=== PATIENT | male | born 1955 | race Caucasian/White ===

== ENCOUNTER 2017-01-07 21:15 | Inpatient (IN) | payer OTHER ==
--- NOTE | ~2017-01-07 | CN ---
Consultation Report [facility] [address] [place]. [address] NAME: KALYN QURESHI : 57 STATUS : ADM IN [facility]#: [id number] AGE: 61 ADM/REG DATE : 01/08/17 MR#: [id number] REPORT SERV DATE: 01/09/17 DICTATED BY: DATE: REPORT STATUS : Draft TRANSCRIBED BY: MODL DATE: 01/08/17 CONSULTATION DATE OF CONSULTATION: 01/08/2017 CHIEF COMPLAINT/REASON FOR CONSULT: Chest pain. HISTORY OF PRESENT ILLNESS: Mr. Kalyn Qureshi is a patient who is a known to me from clinic. He recently established cardiology care with me approximately one week ago. At that time, he was complaining of chest pain and underwent angiogram on 12/28/2016. He was found to have obstructive coronary artery disease in his right coronary artery and underwent drug- eluting stent to the RCA. The patient had a normal left ventricular systolic function and elevated left ventricular end-diastolic pressure at that time. The patient stated that he felt better after the cardiac catheterization and then two days prior to admission he states that he felt like something happen. He stated that he had chest discomfort while he was walking in [facility], 9/10 in intensity. It radiates to his arms and his shoulders bilaterally and it was associated with shortness of breath, sweating, and nausea. 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 He rested in a car and a restaurant across the street and then he felt better. After that episode, he decided to proceed to the hospital for additional evaluation. PAST MEDICAL HISTORY: 1. Coronary artery disease, status post PCI to the RCA, 12/28/2016. 2. Former history of stent placement 2009 to the mid RCA and proximal circumflex. 3. Hypertension. 4. Diabetes. 5. Hyperlipidemia. 6. Morbid obesity. 7. Anxiety and depression. SOCIAL HISTORY: The patient is . He does not smoke, drink, or use extracurricular drugs. FAMILY HISTORY: Noncontributory. MEDICATIONS: Current inpatient medications include, 1. Amlodipine 10 mg p.o. daily. 2. Aspirin 81 mg p.o. daily. 3. Atorvastatin 80 mg p.o. daily. 4. Coreg 12.5 mg p.o. b.i.d. 5. Diazepam 10 mg p.o. at bedtime. 6. Fenofibrate. 7. Hydrocodone. 8. Insulin. Consultation Report [place] [address] [facility] [address] NAME: KALYN QURESHI : 57 STATUS : ADM IN [facility]#: [id number] AGE: 61 ADM/REG DATE : 01/08/17 MR#: [id number] REPORT SERV DATE: 01/09/17 DICTATED BY: DATE: REPORT STATUS : Draft TRANSCRIBED BY: MODL DATE: 01/08/17 9. . 10.Nitroglycerin. 11.Pregabalin. 12.Quetiapine. 13.Sertraline. 14.Ticagrelor. 15.Clonidine. REVIEW OF SYSTEMS: All systems were reviewed and is negative except for as dictated in HPI. PHYSICAL EXAMINATION: VITAL SIGNS: Temperature 98.4, pulse between 90 and 98 beats per minute, blood pressure 118 to 142 over 64 to 77, respirations 20, oxygen saturation is 97% on 2 L nasal cannula. GENERAL: Mr. Qureshi is a well-groomed 61-year-old gentleman, he does appear older than his stated age. NECK: I could not appreciate jugular venous distention due to body habitus. There are no carotid bruits. HEART: Regular rate and rhythm. Normal S1, S2. I could not appreciate murmurs, rubs, or gallops. LUNGS: Clear to auscultation in all wise. ABDOMEN: Obese and nontender. The abdominal aorta is nonpalpable. I could not appreciate renal bruits. EXTREMITIES: Warm. The cardiac catheterization site via the right wrist is well healing via primary intention. There is no significant pitting edema. DATA: BUN 37, creatinine 3.19, potassium 3.5. Hemoglobin 13.4, hematocrit 34.9, white blood cell count 9.3, platelet count 179. Cardiac enzymes are negative x3 with MB that is negative. BNP is less than 2. An EKG performed on admission demonstrated sinus tachycardia. There are no ischemic ST-T segment changes. Repeat EKG performed this morning at 10:43 demonstrated normal sinus rhythm without ischemic ST-T segment changes. IMPRESSION: 1. Chest pain. The differential diagnosis includes unstable angina versus microvascular disease, but also would strongly consider noncardiac causes of chest pain. There is no evidence of acute coronary syndrome. 2. Acute renal failure. Possibly contrast-induced nephropathy. 3. Coronary artery disease, status post PCI to the RCA 12/28/2016 with remote, PCI to the RCA and circumflex in 2009. 4. Hypertension. 5. Diabetes mellitus. 6. Morbid obesity with BMI greater than 40. RECOMMENDATIONS: 1. We would treat the underlying kidney disease. Consultation Report [place] [id number] [facility] [address] NAME: KALYN QURESHI : 57 STATUS : ADM IN [facility]#: [id number] AGE: 61 ADM/REG DATE : 01/08/17 MR#: [id number] REPORT SERV DATE: 01/09/17 DICTATED BY: DATE: REPORT STATUS : Draft TRANSCRIBED BY: MODL DATE: 01/08/17 2. We will arrange for PET myocardial perfusion stress test to evaluate for ischemia. 3. In that light, would discontinue Nitro paste and discontinue heparin as there is no evidence of acute coronary syndrome. 4. Hold JANELLE inhibitor. 5. Additional recommendations, post stress, pending clinical course. [facility]/MODL Cathy Galo M.D. / [id number] CC: Casa Combs Susan R.
--- NOTE | ~2017-01-07 | DS ---
Discharge Summary [place] [address] [place]. [address] NAME: MAGDA JUÁREZ : 57 STATUS : DIS IN PAT#: [id number] AGE: 61 ADM/REG DATE : 01/08/17 MR#: [id number] REPORT SERV DATE: 01/13/17 DICTATED BY: FLAQUITA QUIROS DATE: 01/12/17 REPORT STATUS : Draft TRANSCRIBED BY: MODL DATE: 01/12/17 ADMISSION DATE: 01/08/2017 DISCHARGE DATE: 01/12/2017 CONSULTANTS: Cathy Galo M.D., Cardiology. DISCHARGE DIAGNOSES: 1. Unstable angina pectoris. 2. Acute kidney injury, transient, resolved. 3. Hypertension, not at goal. 4. Diabetes mellitus type 2 with peripheral neuropathy and A1c of 9.3%. 5. Obesity with body mass index of 42.5. 6. Coronary artery disease requiring a new drug-eluting stent to the LAD as well as PTCA to the diagonal 2 and diagonal 3 in spite of recent drug-eluting stent to the RCA on 12/28/2016. 7. Obstructive sleep apnea on CPAP at night. 8. Restless leg syndrome. 9. Mild anemia. 10.Mild chronic stable thrombocytopenia. 11.Severe insomnia with restless legs syndrome. HISTORY: This patient had been hospitalized here and had elective stenting of the right coronary artery on 12/28/2016, but after that discharge he had gradually worsening chest pain along with shortness of breath. No radiation to his left arm along with nausea, and because of this he came to the emergency room. In the ER, his blood sugar was elevated at 341 and his serum creatinine was 3.19. He was referred to our team for inpatient care. The patient was kept off his Bumex and lisinopril. Given IV fluids. He had a renal ultrasound on 01/08/2017 that was normal. The patient's creatinine rapidly improved to 1.29 x 227 and down to 0.74 x 3 to 01/11/2017. He had initial sets of cardiac enzymes that were normal. He underwent a PET myocardial perfusion scan on 01/09/2017 showing the RCA stents patent, moderate mid LAD disease in the mid segment with severe branch vessel disease and ischemia on the noninvasive imaging, ostial ramus and left circumflex disease was unchanged. Because of this, Cardiology recommended the patient to undergo a cardiac catheterization. I discussed with him the risks of this versus going ahead for coronary bypass grafting and actually had cardiothoracic surgery. Dr. Nuñez's team talked to him about the option of surgical intervention. The patient preferred to go the route of non-bypass, so on 01/11/2017 Dr. Birch did a heart catheterization with successful PCI of the LAD with a drug- eluting stent to the LAD and angioplasty to the second and third diagonal. The patient tolerated this procedure well. His creatinine the following day was 0.81 and no site hematoma. He has no recurrent angina. Troponin did bump slightly to 0.38. He has also been moderately hypertensive with systolics ranging in the 190s to 206 range when he is off his lisinopril; however, we do not want to restart him yet on this class of drug with his recent acute kidney injury, so we are recommending amlodipine 5 mg daily unless Cardiology has a different opinion. If Cardiology agrees, the patient will be able to go home today and follow up with his PCP, Discharge Summary [address] [address] NAME: MAGDA JUÁREZ : 57 STATUS : DIS IN PAT#: [id number] AGE: 61 ADM/REG DATE : 01/08/17 MR#: [id number] REPORT SERV DATE: 01/13/17 DICTATED BY: FLAQUITA QUIROS DATE: 01/12/17 REPORT STATUS : Draft TRANSCRIBED BY: MODMonster DATE: 01/12/17 Melva Taylor, as well as Cardiology themselves. The patient through this hospitalization has been noted to have a mild anemia, it is normocytic. His hemoglobin is between 11.2 and 12.1, his PCP will need to follow up on this. He has also been noted to have a mild thrombocytopenia, which is intermittent and goes back to at least July 2015. During this current hospitalization, his platelet count has ranged between 133 and 163,000 and at discharge it is 151,000. No sign of active bleeding. The patient has his chronic stable severe insomnia and restless legs for which he is on multiple medications still. DISCHARGE MEDICATION: Aspirin 81 mg daily, Coreg 12.5 mg twice a day, Valium 10 mg daily at bedtime for sleep, [place] 10/325 two at bedtime for sleep, Tarceva 60 units twice a day (A1c is 9.3% on 01/08/2017), Imdur 30 mg daily, Linzess 290 mcg every 48 hours, melatonin 40 mg at bedtime for sleep, Lyrica 200 mg at bedtime for restless legs, Seroquel 600 mg at bedtime for sleep, Zoloft 100 mg daily, Brilinta 90 mg twice a day, Catapres 0.2 mg at bedtime, Tylenol 650 q.6 hours p.r.n. pain, Humalog sliding scale, nitroglycerin 0.4 mg sublingual p.r.n. chest pain, Requip 2 mg at bedtime as needed for his restless legs, Crestor 40 mg at bedtime, Janumet tab one tablet daily, Invokana 300 mg before breakfast, Belsomra 20 mg at bedtime for sleep, Norvasc 5 mg daily for hypertension. He has a followup appointment with Dr. Cathy Galo of Cardiology at [facility] on 01/16/2017 at 1045 hours in the morning. He is to see his PCP, Dr. Melva Taylor, in one to two weeks. I spent 31 minutes today with the patient and with his and with discharge planning. [facility]/MODL Flaquita Quiros M.D. / [id number] CC: Casa Weinberg M.D.
--- NOTE | ~2017-01-07 | HP ---
History And Physical [place] [id number] [facility] [place]. [address] NAME: MAGDA QURESHI : 57 STATUS : ADM IN [facility]#: [id number] AGE: 61 ADM/REG DATE : 01/08/17 MR#: [id number] REPORT SERV DATE: 01/08/17 DICTATED BY: JENNIFER BISHOP DATE: 01/08/17 REPORT STATUS : Draft TRANSCRIBED BY: MODL DATE: 01/08/17 DATE OF ADMISSION: 01/08/2017 POINT OF ENTRY: [facility] Emergency Department. PRIMARY ROOM SERVICE FOOD SERVER: Cathy Galo M.D. CHIEF COMPLAINT: Chest pain. HISTORY OF PRESENT ILLNESS: Mr. Qureshi is a 61-year-old gentleman with a history of coronary artery disease requiring multiple stent placements with recent drug-eluting stent placement to the RCA approximately 10 days ago as well as insulin-dependent diabetes mellitus type 2, hypertension, hyperlipidemia, and morbid obesity who presents to the ER today with a five to six-day history of progressive worsening chest pain. The patient underwent cardiac catheterization on 12/28/2016 where two drug-eluting stents were placed in the RCA. Of note, the catheterization report also shows 50% stenoses in the ramus, ostial left circumflex, as well as mid LAD which were not intervened upon. The patient states that for the first few days after his catheterization, he was feeling well. However, for the past 5 to 6 days, he has had progressive worsening episodes of chest pain primarily with exertion. The chest pain is associated with nausea, diaphoresis, shortness of breath, and will radiate to the left arm, the neck, as well as his shoulders, and is over the last five days becoming more severe, increasing in frequency, and lasting longer. 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 The pain is also so severe that the patient fell down to the ground. Initial evaluation in the emergency department notable for EKG was nonischemic, cardiac enzymes were negative. Of note, his blood sugar was 341 and his creatinine was 3.19. The patient was subsequently admitted to the Hospitalist Service for further evaluation and management. The patient denies any fevers, night sweats, chills, cough, sputum production, abdominal pain, diarrhea, constipation, dysuria, melena, hematochezia, or hemoptysis. He does report some nausea, primarily associated with the chest pain as well as some recent lower extremity edema for which he has taken some Bumex on Sunday and Sunday. REVIEW OF SYSTEMS: Comprehensive review of systems otherwise negative unless listed in history of present illness. PAST MEDICAL HISTORY: 1. Coronary artery disease with multiple prior PCI. 2. Insulin-dependent diabetes mellitus type 2, hemoglobin A1c of 9.2. 3. Hypertension. 4. Hyperlipidemia. History And Physical [address] [place]. [address] NAME: MAGDA QURESHI : 57 STATUS : ADM IN [facility]#: [id number] AGE: 61 ADM/REG DATE : 01/08/17 MR#: [id number] REPORT SERV DATE: 01/08/17 DICTATED BY: JENNIFER BISHOP DATE: 01/08/17 REPORT STATUS : Draft TRANSCRIBED BY: CHELY DATE: 01/08/17 5. Morbid obesity. 6. History of nephrolithiasis. 7. Gastroesophageal reflux disease. 8. Restless legs syndrome. 9. Obstructive sleep apnea, on CPAP therapy. 10.History of chronic systolic congestive heart failure, recent left ventriculogram shows ejection fraction of 60%. PAST SURGICAL HISTORY: 1. Bilateral total knee. 2. Left total knee revision. 3. PCI. 4. Cholecystectomy. 5. Spinal fusion. ALLERGIES: LATEX, PENICILLIN, OXYCODONE, AND STERI-STRIPS. HOME MEDICATIONS: Pending at the time of dictation. The patient is on aspirin 81 as well as Brilinta, lisinopril 20, as well as Bumex p.r.n. in addition to other medications yet to be confirmed. SOCIAL HISTORY: He denies any tobacco, alcohol, or illicits. 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 FAMILY MEDICAL HISTORY: Mother with coronary artery disease, father with coronary artery disease, siblings with coronary artery disease and diabetes. LABS AND IMAGIN. White count is 9.3, hemoglobin is 13.4, hematocrit 34.9, platelet count is 178, INR is 1.1. 2. Sodium 135, potassium 3.5, chloride 100, carbon dioxide 21, BUN 37 creatinine 3.19, glucose 341, calcium 7.3, magnesium 1.4. 3. Troponin less than 0.02. 4. Chest x-ray per my review shows no acute cardiopulmonary abnormality. 5. EKG per my review shows sinus tachycardia with heart rate of 108. No evidence of any acute ischemia or infarction. 6. [facility] reveals a cardiac catheterization from 12/28/2016 that shows drug- eluting stent placement times two to the RCA, left ventriculogram shows ejection fraction 60% as well as documentation of 50% stenoses in the ramus, ostial circumflex, as well as mid LAD. PHYSICAL EXAMINATION: VITAL SIGNS: Temperature is 97.7 degrees Fahrenheit, pulse is 111, respirations 20, saturating 95% on room air, blood pressure 142/87, on recheck blood pressure is now 111/60, pulse is 70. GENERAL: The patient is awake, alert, in no acute distress. Resting comfortably in bed. He is a well-developed, well-nourished, morbidly obese appearing male, at History And Physical [address] [address] NAME: MAGDA QURESHI : 57 STATUS : ADM IN [facility]#: [id number] AGE: 61 ADM/REG DATE : 01/08/17 MR#: [id number] REPORT SERV DATE: 01/08/17 DICTATED BY: JENNIFER BISHOP DATE: 01/08/17 REPORT STATUS : Draft TRANSCRIBED BY: CHELY DATE: 01/08/17 bedside. HEENT: Atraumatic and normocephalic. Slightly dry mucous membranes. Pupils are equal, round, reactive to light and accommodation. Extraocular eye movements are intact. No scleral icterus. NECK: No jugular venous distention. No carotid bruits. CARDIAC: Regular rate and rhythm. No murmurs or gallops. Normal S1, S2. LUNGS: Clear to auscultation bilaterally. No wheezes, rhonchi, or crackles. ABDOMEN: Obese soft, nontender, nondistended. Good bowel sounds. No rebound, guarding, or rigidity. EXTREMITIES: Warm and well-perfused with trace lower extremity edema. SKIN: Warm and dry. PSYCH: Affect is very anxious. NEURO: Alert and orient x3. Cranial nerves 2 through 12 grossly intact. Speech is normal. Gait is not assessed. ASSESSMENT AND PLAN: Mr. Qureshi is a 61-year-old gentleman with a known history of coronary artery disease with recent drug-eluting stent placement to the RCA approximately 10 days ago who presents with five to six-day history of progressive worsening exertional angina concerning for unstable angina, acute coronary syndrome. PROBLEM LIST: 1. Unstable angina with acute coronary syndrome. 2. Acute kidney injury. 3. Insulin-dependent diabetes mellitus type 2 with hyperglycemia. 4. Hypertension. 5. Hyperlipidemia. 6. Morbid obesity. PLAN: 1. Unstable angina, acute coronary syndrome, we will place the patient on a heparin infusion. Continue the patient's aspirin and Brilinta. Continue to trend out cardiac enzymes. We will consult Cardiology to see patient in the morning. We will empirically place the patient and make patient n.p.o. in the event that he needs intervention whether the stress test versus cardiac catheterization. 2. Acute kidney injury. Unclear etiology at this time. He is on lisinopril, did receive Bumex over the week, also has some uncontrolled diabetes as well as recent exposure to IV contrast. Check urinalysis, urine lytes, as well as renal ultrasound. We will place the patient on some IV fluid hydration, and hold the patient's nephrotoxic medications. 3. Insulin-dependent diabetes mellitus type [address] the patient on level 3 insulin sliding scale. He has received 5 units of IV insulin here in the emergency department for immediate correction. We will provide some IV fluids to help with hyperglycemia. 4. DVT prophylaxis, heparin infusion. CODE STATUS: The patient wished to be full code. History And Physical [address] [address] NAME: MAGDA QURESHI : 57 STATUS : ADM IN PAT#: [id number] AGE: 61 ADM/REG DATE : 01/08/17 MR#: [id number] REPORT SERV DATE: 01/08/17 DICTATED BY: JENNIFER BISHOP DATE: 01/08/17 REPORT STATUS : Draft TRANSCRIBED BY: CHELY DATE: 01/08/17 [facility]/CHELY Jennifer Bishop MD / [id number] CC: Casa Combs NP Lisa Gail Carkner, M.D.
[~2017-01-07 21:15] MED LIST: AMARYL2 PO; AMBIEN CR12.5 MG PO; ASA5GR PO; ASAB PO; ASABAYER PO; BELSOMRA20 MG PO; BENTYL10 PO; BRILINTA90 MG PO; BUM2 PO; C5; CAT2 PO; COQ10100 MG OR; COREG12 PO; CRESTOR40 MG PO; DURA100 TOP; DURA25 TOP; GLUCOPHAGE1000 MG PO; HUMALOG SC; HUMALOGPEN SC; IMDUR30 PO; INVOKANA100 MG PO; INVOKANA300 MG PO; JANUMET1 TA1 PO; L20 PO; LANTUS SC; LANTUSCART SC; LEVAQUIN750 MG PO; LINZESS 290 M290 MCG PO; LORTAB 5 PO; LYRICA100 MG PO; LYRICA150 MG PO; MSCONT60 PO; NAP500 PO; NEXIUM40 PO; NITROSTAT0.4 MG SL; NORCO1 TAB PO; NORV10 PO; PCET PO; PRILO PO; PRILOSEC40 MG PO; PRIN20 PO; REQUIP1 PO; ROXICODONE15 MG PO; SEROQUEL XR300 MG PO; SEROQUEL300 MG PO; SUCR PO; TOUJEO IJ; TRESIBA FL100 UNIT/1 SC; TRILIPIX135 MG PO; ULTRAM50 PO; V5 PO; VALIUM10 MG PO; VITE PO; ZOL100 PO
[2017-01-07 21:40] LABS: BASOPHILS 0.3 %; BASOPHILS ABSOLUTE 0.03 10/3/uL (0.0-0.16); EOSINOPHILS 10.7 %; EOSINOPHILS ABSOLUTE 0.99 10/3/uL (0.0-0.53); ER CBC TAT 0 Hrs 08 Mins; HEMATOCRIT 34.9 % (40.0-51.0); HEMOGLOBIN 13.4 g/dL (13.6-17.8); IMMATURE GRANULOCYTES 0.3 %; IMMATURE GRANULOCYTES ABSOLUTE 0.03 10/3/uL (0.0-0.11); LYMPHOCYTES 32.3 %; LYMPHOCYTES ABSOLUTE 2.99 10/3/uL (0.67-4.30); MANUAL DIFF NO %; MEAN CORPUS HGB CONC 38.4 g/dL (32.0-36.0); MEAN CORPUSCULAR HEMOGLOB 30.9 pg (26.0-34.0); MEAN CORPUSCULAR VOLUME 80.6 fL (80-100); MEAN PLATELET VOLUME 9.5 fL (9.2-13.0); MONOCYTES 8.2 %; MONOCYTES ABSOLUTE 0.76 10/3/uL (0.21-1.20); NEUTROPHILS 48.2 %; NEUTROPHILS ABSOLUTE 4.45 10/3/uL (2.02-8.40); PLATELET COUNT 178 10/3/uL (150-400); RBC DISTRIBUTION WIDTH 13.9 % (12.0-16.0); RED CELL COUNT 4.33 10/6/uL (4.7-6.1); WHITE BLOOD CELLS 9.3 10/3/uL (4.5-10.5)
[2017-01-07 21:46] LABS: INTERNATIONAL NORMAL RATI 1.1 UNITS (-); PROTIME (NOT ORD) 14.1 SEC (12.0-14.5)
[2017-01-07 21:57] LABS: CALCIUM, SERUM 7.3 MG/DL (8.5-10.4); CHEST PAIN PROFILE TAT 0 Hrs 25 Mins; CHLORIDE, SERUM 100 MMOL/L (96-112); CO2 (CARBON DIOXIDE) 21 MMOL/L (24-34); SODIUM, SERUM 135 MMOL/L (135-148); TROPONIN I <0.02 NG/ML (<0.05)
[2017-01-07 21:58] LABS: BUN (BLOOD UREA NITROGEN) 37 MG/DL (6-23); CREATININE 3.19 MG/DL (0.70-1.30); GFR AFRICAN AMERICAN 23 ML/MIN (>=60); GFR NON AFRICAN AMERICAN 20 ML/MIN (>=60); GLUCOSE, SERUM 341 MG/DL (60-99); POTASSIUM, SERUM 3.5 MMOL/L (3.5-5.3)
[2017-01-08 05:09] LABS: TROPONIN I <0.02 NG/ML (<0.05)
[2017-01-08 05:11] LABS: CK-MB < 0.5 NG/ML; CPK 154 U/L (0-200)
[2017-01-08 10:37] LABS: TROPONIN I <0.02 NG/ML (<0.05)
[2017-01-08 10:38] LABS: CK-MB < 0.5 NG/ML; CPK 103 U/L (0-200)
[2017-01-08] MEDS ORDERED: MELATONIN10 M2 PO (11:18)
[2017-01-08] MEDS ORDERED: IMDUR30 PO (11:30)
[2017-01-08 13:51] LABS: BASOPHILS 0.5 %; BASOPHILS ABSOLUTE 0.04 10/3/uL (0.0-0.16); EOSINOPHILS 14.7 %; EOSINOPHILS ABSOLUTE 1.12 10/3/uL (0.0-0.53); HEMATOCRIT 33.2 % (40.0-51.0); HEMOGLOBIN 12.1 g/dL (13.6-17.8); IMMATURE GRANULOCYTES 0.3 %; IMMATURE GRANULOCYTES ABSOLUTE 0.02 10/3/uL (0.0-0.11); LYMPHOCYTES 35.7 %; LYMPHOCYTES ABSOLUTE 2.72 10/3/uL (0.67-4.30); MEAN CORPUSCULAR HEMOGLOB 29.5 pg (26.0-34.0); MEAN PLATELET VOLUME 9.4 fL (9.2-13.0); MONOCYTES 6.6 %; NEUTROPHILS 42.2 %; NEUTROPHILS ABSOLUTE 3.22 10/3/uL (2.02-8.40); PLATELET COUNT 163 10/3/uL (150-400); RBC DISTRIBUTION WIDTH 14.1 % (12.0-16.0); WHITE BLOOD CELLS 7.6 10/3/uL (4.5-10.5)
[2017-01-08 13:52] LABS: MANUAL DIFF NO %; MEAN CORPUS HGB CONC 36.4 g/dL (32.0-36.0)
[2017-01-08 14:00] LABS: ASCORBIC ACID (UR NOT ORDER) NEG (NEG); BILIRUBIN, URINE NEGATIVE (NEG); KETONE, URINE NEGATIVE (NEG); LEUKOCYTE ESTERASE(NOT OR NEG (NEG); WBC (NOT ORDERED) (RFLEX) 1 (0-5)
[2017-01-08 14:55] LABS: ALBUMIN 3.4 G/DL (3.5-5.0); BUN (BLOOD UREA NITROGEN) 30 MG/DL (6-23); CALCIUM, SERUM 7.5 MG/DL (8.5-10.4); CHLORIDE, SERUM 105 MMOL/L (96-112); CO2 (CARBON DIOXIDE) 24 MMOL/L (24-34); CREATININE 1.29 MG/DL (0.70-1.30); GFR AFRICAN AMERICAN 69 ML/MIN (>=60); GFR NON AFRICAN AMERICAN 60 ML/MIN (>=60); GLUCOSE, SERUM 276 MG/DL (60-99); PHOSPHORUS, SERUM 2.3 MG/DL (2.5-4.5); POTASSIUM, SERUM 4.1 MMOL/L (3.5-5.3); SODIUM, SERUM 139 MMOL/L (135-148)
[2017-01-08 18:50] LABS: ALKALINE PHOSPHATASE 80 U/L (45-117); DIRECT BILIRUBIN < 0.1 MG/DL (0.0-0.4); INDIRECT BILIRUBIN(NOT ORDER) 0.3 MG/DL (0.1-0.9); SGOT(AST) 21 U/L (5-40); SGPT(ALT) 37 U/L (5-65); TOTAL BILIRUBIN 0.4 MG/DL (0-1.2); TOTAL PROTEIN 6.6 G/DL (6.0-8.5)
[2017-01-09 05:36] LABS: BUN (BLOOD UREA NITROGEN) 28 MG/DL (6-23); CALCIUM, SERUM 7.7 MG/DL (8.5-10.4); CHLORIDE, SERUM 108 MMOL/L (96-112); CO2 (CARBON DIOXIDE) 23 MMOL/L (24-34); CREATININE 1.03 MG/DL (0.70-1.30); GFR AFRICAN AMERICAN 91 ML/MIN (>=60); GFR NON AFRICAN AMERICAN 79 ML/MIN (>=60); POTASSIUM, SERUM 3.9 MMOL/L (3.5-5.3); SODIUM, SERUM 141 MMOL/L (135-148)
[2017-01-09 05:37] LABS: GLUCOSE, SERUM 197 MG/DL (60-99)
[2017-01-10 07:21] LABS: BASOPHILS 0.5 %; BASOPHILS ABSOLUTE 0.03 10/3/uL (0.0-0.16); EOSINOPHILS 13.9 %; EOSINOPHILS ABSOLUTE 0.88 10/3/uL (0.0-0.53); HEMATOCRIT 33.5 % (40.0-51.0); HEMOGLOBIN 12.1 g/dL (13.6-17.8); IMMATURE GRANULOCYTES 0.3 %; IMMATURE GRANULOCYTES ABSOLUTE 0.02 10/3/uL (0.0-0.11); LYMPHOCYTES 38.7 %; LYMPHOCYTES ABSOLUTE 2.45 10/3/uL (0.67-4.30); MEAN CORPUS HGB CONC 36.1 g/dL (32.0-36.0); MEAN CORPUSCULAR HEMOGLOB 30.3 pg (26.0-34.0); MEAN PLATELET VOLUME 9.4 fL (9.2-13.0); MONOCYTES 6.6 %; MONOCYTES ABSOLUTE 0.42 10/3/uL (0.21-1.20); NEUTROPHILS ABSOLUTE 2.53 10/3/uL (2.02-8.40); PLATELET COUNT 133 10/3/uL (150-400); RBC DISTRIBUTION WIDTH 14.2 % (12.0-16.0); RED CELL COUNT 3.99 10/6/uL (4.7-6.1); WHITE BLOOD CELLS 6.3 10/3/uL (4.5-10.5)
[2017-01-10 07:24] LABS: MANUAL DIFF NO %
[2017-01-10 07:28] LABS: PARTIAL THROMBO TIME 34.9 SEC (22.5-37.2)
[2017-01-10 07:31] LABS: BUN (BLOOD UREA NITROGEN) 16 MG/DL (6-23); CALCIUM, SERUM 8.1 MG/DL (8.5-10.4); CHLORIDE, SERUM 107 MMOL/L (96-112); CO2 (CARBON DIOXIDE) 25 MMOL/L (24-34); CREATININE 0.85 MG/DL (0.70-1.30); GFR AFRICAN AMERICAN 110 ML/MIN (>=60); GFR NON AFRICAN AMERICAN 95 ML/MIN (>=60); GLUCOSE, SERUM 160 MG/DL (60-99); POTASSIUM, SERUM 3.9 MMOL/L (3.5-5.3); SODIUM, SERUM 142 MMOL/L (135-148)
[2017-01-10 12:57] LABS: PHOSPHORUS, SERUM 2.2 MG/DL (2.5-4.5)
[2017-01-11 06:22] LABS: BASOPHILS 0.5 %; BASOPHILS ABSOLUTE 0.04 10/3/uL (0.0-0.16); EOSINOPHILS ABSOLUTE 0.99 10/3/uL (0.0-0.53); HEMATOCRIT 31.1 % (40.0-51.0); HEMOGLOBIN 11.2 g/dL (13.6-17.8); IMMATURE GRANULOCYTES 0.5 %; IMMATURE GRANULOCYTES ABSOLUTE 0.04 10/3/uL (0.0-0.11); LYMPHOCYTES ABSOLUTE 2.82 10/3/uL (0.67-4.30); MEAN CORPUSCULAR HEMOGLOB 29.1 pg (26.0-34.0); MEAN PLATELET VOLUME 9.5 fL (9.2-13.0); MONOCYTES 6.6 %; NEUTROPHILS 42.4 %; NEUTROPHILS ABSOLUTE 3.23 10/3/uL (2.02-8.40); PLATELET COUNT 137 10/3/uL (150-400); RBC DISTRIBUTION WIDTH 14.2 % (12.0-16.0); RED CELL COUNT 3.85 10/6/uL (4.7-6.1); WHITE BLOOD CELLS 7.6 10/3/uL (4.5-10.5)
[2017-01-11 06:25] LABS: MANUAL DIFF NO %; MEAN CORPUSCULAR VOLUME 80.8 fL (80-100)
[2017-01-11 06:26] LABS: INTERNATIONAL NORMAL RATI 1.2 UNITS (-); PROTIME (NOT ORD) 14.6 SEC (12.0-14.5)
[2017-01-11 06:31] LABS: BUN (BLOOD UREA NITROGEN) 13 MG/DL (6-23); CALCIUM, SERUM 7.9 MG/DL (8.5-10.4); CHLORIDE, SERUM 109 MMOL/L (96-112); CHOL/HDL RATIO(NOT ORDER) 4.3 (0-5); CO2 (CARBON DIOXIDE) 24 MMOL/L (24-34); CREATININE 0.74 MG/DL (0.70-1.30); GFR AFRICAN AMERICAN 116 ML/MIN (>=60); GFR NON AFRICAN AMERICAN 100 ML/MIN (>=60); GLUCOSE, SERUM 168 MG/DL (60-99); HDL CHOLESTEROL 36 MG/DL (> 39); LDL CHOLESTEROL 46 MG/DL (< 130); NON-HDL CHOLESTEROL 120 MG/DL (< 160); POTASSIUM, SERUM 3.7 MMOL/L (3.5-5.3); SODIUM, SERUM 142 MMOL/L (135-148); TRIGLYCERIDE 374 MG/DL (< 150)
[2017-01-11 06:32] LABS: CHOLESTEROL 156 MG/DL (< 200)
[2017-01-11 06:56] LABS: PARTIAL THROMBO TIME 142.4 SEC (22.5-37.2)
[2017-01-11 11:00] LABS: CK-MB 0.5 NG/ML; CPK 53 U/L (0-200)
[2017-01-12 05:46] LABS: BASOPHILS 0.1 %; BASOPHILS ABSOLUTE 0.01 10/3/uL (0.0-0.16); EOSINOPHILS 12.6 %; EOSINOPHILS ABSOLUTE 0.95 10/3/uL (0.0-0.53); HEMATOCRIT 31.4 % (40.0-51.0); HEMOGLOBIN 11.4 g/dL (13.6-17.8); IMMATURE GRANULOCYTES 0.7 %; IMMATURE GRANULOCYTES ABSOLUTE 0.05 10/3/uL (0.0-0.11); LYMPHOCYTES 25.3 %; MEAN CORPUS HGB CONC 36.3 g/dL (32.0-36.0); MEAN CORPUSCULAR HEMOGLOB 30.3 pg (26.0-34.0); MEAN PLATELET VOLUME 9.6 fL (9.2-13.0); MONOCYTES 6.8 %; MONOCYTES ABSOLUTE 0.51 10/3/uL (0.21-1.20); NEUTROPHILS 54.5 %; PLATELET COUNT 151 10/3/uL (150-400); RBC DISTRIBUTION WIDTH 14.1 % (12.0-16.0); RED CELL COUNT 3.76 10/6/uL (4.7-6.1); WHITE BLOOD CELLS 7.5 10/3/uL (4.5-10.5)
[2017-01-12 05:50] LABS: BUN (BLOOD UREA NITROGEN) 11 MG/DL (6-23); CALCIUM, SERUM 7.9 MG/DL (8.5-10.4); CHLORIDE, SERUM 110 MMOL/L (96-112); CHOLESTEROL 148 MG/DL (< 200); CO2 (CARBON DIOXIDE) 24 MMOL/L (24-34); CPK 68 U/L (0-200); CREATININE 0.81 MG/DL (0.70-1.30); GFR AFRICAN AMERICAN 112 ML/MIN (>=60); GFR NON AFRICAN AMERICAN 97 ML/MIN (>=60); GLUCOSE, SERUM 161 MG/DL (60-99); HDL CHOLESTEROL 37 MG/DL (> 39); LDL CHOLESTEROL 45 MG/DL (< 130); NON-HDL CHOLESTEROL 111 MG/DL (< 160); POTASSIUM, SERUM 3.9 MMOL/L (3.5-5.3); SGPT(ALT) 40 U/L (5-65); SODIUM, SERUM 143 MMOL/L (135-148); TRIGLYCERIDE 333 MG/DL (< 150)
[2017-01-12 05:52] LABS: CK-MB 1.9 NG/ML
[2017-01-12 05:54] LABS: MANUAL DIFF NO %; MEAN CORPUSCULAR VOLUME 83.5 fL (80-100)
[2017-01-12 05:56] LABS: TROPONIN I 0.38 NG/ML (<0.05)
[2017-01-12] MEDS ORDERED: T PO (09:13)
[2017-01-12] MEDS ORDERED: NORV5 PO (09:15)
[2017-03-05] MEDS ORDERED: TRILIPIX135 MG PO (12:16)
[2017-03-05] MEDS ORDERED: BELSOMRA20 MG PO (12:17)
[2017-03-14] MEDS ORDERED: JANUMET1 TA1 PO (17:22)
[2017-03-14] MEDS ORDERED: LINZESS 290 M290 MCG PO (17:23)
[2017-03-14] MEDS ORDERED: NITROSTAT0.4 MG SL (17:23)
[2017-03-14] MEDS ORDERED: REQUIP1 PO (17:24)
[2017-03-14] MEDS ORDERED: ZOL100 PO (17:24)
[2017-03-14] MEDS ORDERED: BUM2 PO (17:24)
[2017-03-14] MEDS ORDERED: BELSOMRA20 MG PO (17:24)
[2017-03-14] MEDS ORDERED: MELATONIN10 M2 PO (17:25)
[2017-03-14] MEDS ORDERED: ASAB PO (17:25)
[2017-03-14] MEDS ORDERED: HUMALOG SC (17:25)
[2017-03-14] MEDS ORDERED: ALEVE220 MG PO (17:26)
[2017-03-14] MEDS ORDERED: NORCO1 TAB PO (17:26)
[2017-03-14] MEDS ORDERED: CAT2 PO (17:26)
[2017-03-14] MEDS ORDERED: TRESIBA FL200 UNIT/1 SC (17:26)
[2017-03-14] MEDS ORDERED: PRIN20 PO (17:26)
[2017-03-14] MEDS ORDERED: NORV10 PO (17:27)
[2017-03-14] MEDS ORDERED: IMDUR60 PO (17:27)
[2017-03-14] MEDS ORDERED: BRILINTA90 MG PO (17:27)
[2017-03-14] MEDS ORDERED: SEROQUEL300 MG PO (17:27)
[2017-03-14] MEDS ORDERED: VALIUM10 MG PO (17:27)
[2017-03-14] MEDS ORDERED: LYRICA200 MG PO (17:28)
[2017-03-14] MEDS ORDERED: COREG12 PO (17:29)
[2017-03-14] MEDS ORDERED: CRESTOR40 MG PO (17:29)
[2017-03-14] MEDS ORDERED: LOFIB160 PO (17:32)
[2017-03-15] MEDS ORDERED: IMDUR120 PO (11:30)
[2017-07-27] MEDS ORDERED: CAT2 PO (10:54)
[2017-07-27] MEDS ORDERED: PLAVIX PO (10:55)
[2017-07-27] MEDS ORDERED: COREG25 PO (10:55)
[2017-07-27] MEDS ORDERED: TRULICITY1.5 MG/0.5 SQ (10:56)
[2017-07-27] MEDS ORDERED: IMDUR60 PO (11:08)
[2017-07-30] MEDS ORDERED: LYRICA100 MG PO (08:26)
[2017-07-30] MEDS ORDERED: RANEXA1000 MG PO (15:37)
== END 2017-01-12 09:30 | disposition home or self-care (01) | DRG 247 ==
LOC: ER 21:15 → 7NO 01-08 01:15 → SSU1 01-11 10:30
PROVIDERS: Hospitalist; Internal Medicine; Internal Medicine Cardiovascular Disease; Nurse Practitioner Family; Specialist
PROC: 4A023N7 Measurement of Cardiac Sampling and Pressure, Left Heart, Percutaneous Approach (ICD-10-PCS; principal; 2017-01-09)
PROC: B2151ZZ Fluoroscopy of Left Heart using Low Osmolar Contrast (ICD-10-PCS; 2017-01-09)
PROC: B2111ZZ Fluoroscopy of Multiple Coronary Arteries using Low Osmolar Contrast (ICD-10-PCS; 2017-01-09)
PROC: 027034Z Dilation of Coronary Artery, One Artery with Drug-eluting Intraluminal Device, Percutaneous Approach (ICD-10-PCS; 2017-01-11)
DX: I25.110 Atherosclerotic heart disease of native coronary artery with unstable angina pectoris (principal); N17.9 Acute kidney failure, unspecified; I50.22 Chronic systolic (congestive) heart failure; E11.22 Type 2 diabetes mellitus with diabetic chronic kidney disease; D69.6 Thrombocytopenia, unspecified; E11.42 Type 2 diabetes mellitus with diabetic polyneuropathy; Z68.41 Body mass index [BMI] 40.0-44.9, adult; I10 Essential (primary) hypertension; E78.5 Hyperlipidemia, unspecified; E66.01 Morbid (severe) obesity due to excess calories; K21.9 Gastro-esophageal reflux disease without esophagitis; G25.81 Restless legs syndrome; G47.33 Obstructive sleep apnea (adult) (pediatric); Z96.653 Presence of artificial knee joint, bilateral; D64.9 Anemia, unspecified; G47.00 Insomnia, unspecified; E11.65 Type 2 diabetes mellitus with hyperglycemia; F41.9 Anxiety disorder, unspecified; F32.9 Major depressive disorder, single episode, unspecified; N14.1 Nephropathy induced by other drugs, medicaments and biological substances; T50.8X5A Adverse effect of diagnostic agents, initial encounter; Y92.234 Operating room of hospital as the place of occurrence of the external cause; Z95.5 Presence of coronary angioplasty implant and graft; Z99.81 Dependence on supplemental oxygen; Z98.890 Other specified postprocedural states; Z91.040 Latex allergy status; Z91.048 Other nonmedicinal substance allergy status; Z88.0 Allergy status to penicillin; Z88.5 Allergy status to narcotic agent; Z87.442 Personal history of urinary calculi; Z82.49 Family history of ischemic heart disease and other diseases of the circulatory system; Z83.3 Family history of diabetes mellitus
CPT/HCPCS: 71020; 76775; 78492; 80048; 80061; 80069; 80076; 81001; 82550; 82553; 82570; 82962; 83036; 83735; 83880; 83935; 84100; 84300; 84460; 84484; 85025; 85610; 85730; 92921; 93005; 93017; 93454; 99152; 99153; 99285; A9270-GY; A9555; C1713; C1725; C1760; C1769; C1874; C1887; C1894; C8929; C9600; J0583; J1200; J2250; J2405; J2785; J3010; Q9957; Q9967

== ENCOUNTER 2017-03-06 06:13 | Observation (INO) | payer OTHER ==
--- NOTE | ~2017-03-06 | CN ---
Consultation Report [facility] [address] [place]. [address] NAME: MAGDA JUÁREZ : 57 STATUS : REG REF PAT#: [id number] AGE: 61 ADM/REG DATE : 03/06/17 MR#: [id number] REPORT SERV DATE: 03/07/17 DICTATED BY: JENNIFER NUÑEZ DATE: 03/06/17 REPORT STATUS : Draft TRANSCRIBED BY: MODL DATE: 03/06/17 CONSULTATION NOTE DATE OF CONSULTATION: 03/06/2017 CHIEF COMPLAINT: Chest pain. HISTORY OF PRESENT ILLNESS: This is a 61-year-old obese nonsmoker with diabetes, who has known coronary artery disease and has had previous stent placement in 2009 in the mid RCA and proximal circumflex at [place]. He was doing well until 08/2013, and at that time, he was found to have progression of his disease with 90% stenosis in the very distal left anterior descending at the apex and 75% lesions in small first and second diagonal branches. He continued to do well until earlier this year when he had chest pain and presented with non-ST elevation myocardial infarction to [facility]. At that time, he had cath that showed normal left ventricular systolic function and he had two stents to the right coronary artery. Later in that same hospitalization, he had recurrent chest and shoulder and arm pain and underwent successful PCI to the left anterior descending with drug-eluting stent and angioplasty to the second and third diagonal. He returned recently with approximately 10 days of chest discomfort, waxing and waning primarily with exertion. He called his media technician and was scheduled for a PET myocardial nuclear stress test. This demonstrated significant anterior and apical ischemia with rest, left ventricular ejection fraction of 55%. Today, he underwent coronary arteriogram that again demonstrated normal left ventricular function, terminal LAD disease of 99% at the apex, disease involving the posterior lateral branch off the RCA, and significant disease in the ostial diagonal and ostial ramus, for which underwent plano balloon angioplasty with residual 50% ostial stenosis in both lesions. We are asked to see for the possibility of patient being a candidate for coronary artery bypass grafting and transmyocardial revascularization to the LAD territory. The patient has been on Brilinta, last dose three days ago. Currently, he is without chest pain or discomfort. PRIOR MEDICAL HISTORY: 1. Coronary artery disease, status post stenting. 2. Type 2 diabetes mellitus, insulin dependent with peripheral neuropathy. 3. Morbid obesity. 4. Obstructive sleep apnea, on CPAP. 5. Restless legs syndrome. 6. Chronic stable thrombocytopenia. 7. Chronic insomnia severe with restless legs syndrome. 8. Hyperlipidemia. 9. Hypertension. 10.History of nephrolithiasis. 11.Gastroesophageal reflux disease. 12.Degenerative joint disease. Consultation Report [address] [place]. [address] NAME: MAGDA JUÁREZ : 57 STATUS : REG REF PAT#: [id number] AGE: 61 ADM/REG DATE : 03/06/17 MR#: [id number] REPORT SERV DATE: 03/07/17 DICTATED BY: JENNIFER NUÑEZ DATE: 03/06/17 REPORT STATUS : Draft TRANSCRIBED BY: CHELY DATE: 03/06/17 PRIOR SURGICAL HISTORY: 1. Significant for bilateral total knee arthroplasty x2 on each knee. 2. Previous PCI with stenting. 3. Previous cholecystectomy. 4. Prior spinal fusion. ALLERGIES: INCLUDE OXYCODONE, WHICH CAUSES HALLUCINATIONS; PENICILLINS, WHICH HE ASSOCIATES WITH SEIZURES; LATEX, WHICH HE ASSOCIATES WITH BLISTERING; ELASTIC BANDS AND STERI-STRIPS, WHICH HE ASSOCIATES WITH BLISTERING OF HIS SKIN. MEDICATIONS: Include amlodipine 5 mg p.o. daily, aspirin 81 mg p.o. daily, bumetanide 2 mg p.o. daily, carvedilol 12.5 mg p.o. daily, Catapres 0.2 mg p.o. at h.s., diazepam 10 mg p.o. at h.s., Trilipix 135 mg p.o. at h.s., hydrocodone/APAP 10/325 two tabs p.o. at h.s., insulin 60 units subcu twice a day, lispro insulin on sliding scale, isosorbide mononitrate ER 60 mg p.o. daily, Linzess two tabs p.o. b.i.d., melatonin 40 mg p.o. at h.s., nitroglycerin 0.4 mg sublingual p.r.n., Lyrica 400 mg p.o. at h.s., Seroquel 600 mg p.o. at h.s., rosuvastatin 40 mg p.o. at h.s., sertraline 100 mg p.o. at h.s., Janumet one p.o. daily, Belsomra 20 mg p.o. at bedtime, and Brilinta 90 mg p.o. b.i.d., last dose was Sunday. FAMILY HISTORY: Significant for father with heart disease and sudden cardiac , high blood pressure, high cholesterol. Mother had heart disease, hypertension, high cholesterol, and is . He has brothers with heart disease, diabetes, hypertension, high cholesterol, and sister with heart disease, high blood pressure, and high cholesterol. 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 He is a never smoker, is , does not use alcohol or illicit drugs. REVIEW OF SYSTEMS: GENERAL: Positive for 30-pound weight gain over the past 30-60 days. He reports exercise intolerance, chest pain, dyspnea on exertion. ENT: He wears glasses and has an upper plate. No difficulty eating, chewing, or swallowing. RESPIRATORY: Positive for shortness of breath, dyspnea on exertion. CV: As above. GI: Positive for gastroesophageal reflux and previous cholecystectomy. : Positive for nephrolithiasis. Prior acute kidney injury at last hospitalization. MUSCULOSKELETAL: Positive for previous epidural steroid injections to the back, previous knee surgeries and degenerative joint disease. He has had previous lumbar spinal fusion. ENDOCRINE: Positive for his insulin-dependent diabetes. HEME/ONC: Negative for malignancy. Negative for easy bruising or free bleeding. NEURO/PSYCH: Positive for severe anxiety and depression, severe insomnia. Negative for TIA or stroke. VASCULAR: Negative for peripheral arterial or venous disease. INTEGUMENTARY: Negative. Consultation Report [place] [id number] [facility] [place]. [address] NAME: MAGDA JUÁREZ : 57 STATUS : REG REF PAT#: [id number] AGE: 61 ADM/REG DATE : 03/06/17 MR#: [id number] REPORT SERV DATE: 03/07/17 DICTATED BY: JENNIFER NUÑEZ DATE: 03/06/17 REPORT STATUS : Draft TRANSCRIBED BY: MODL DATE: 03/06/17 PHYSICAL EXAMINATION: GENERAL: He is a pleasant, anxious, obese white male. His height is 167.64 cm. Weight 119.92 kg. VITAL SIGNS: Blood pressure 196/91, temperature 97.8, pulse 70 and regular, respirations 23 and regular, and saturation 95% on room air. HEENT: Normocephalic, atraumatic. Pupils equal, round, reactive to light and accommodation. Sclerae clear, conjunctivae pink. Oral and buccal mucosa pink and moist, his upper teeth are missing. Lower teeth in good condition. Mallampati class 4 airway. NECK: Supple but short. No restricted range of motion. No carotid bruits. No jugular venous distention. CHEST: Obese, no deformity. No use of accessory muscles with bilateral clear breath sounds. BREASTS: Not examined. CV: Regular rate and rhythm without murmur or rub. He has palpable and symmetric central and peripheral pulses, no clubbing, no cyanosis, trace to 1+ lower extremity pitting edema, and no varicosities. ABDOMEN: Soft, obese, nontender with normoactive bowel sounds. /RECTAL: Declined. MUSCULOSKELETAL: No kyphoscoliosis. No asymmetry. He has scarring over both knees consistent with prior surgeries. NEURO/PSYCH: He is alert and oriented to day, date, place, and situation. His speech is pressured, fluent, and he has a great deal of anxiety. No focal neurologic deficits. SKIN, HAIR, NAILS: Flushed facies, no lesions or masses or rashes. DATA: His coronary arteriogram, which I reviewed with Dr. Nuñez today. His EKG showing normal sinus rhythm with Q-waves in the inferior leads. CURRENT LABORATORY DATA: Sodium is 139, potassium 3.6, chloride 105, CO2 of 25, BUN 15, and creatinine 0.95. CBC shows WBCs 8.1, hemoglobin 13.5 g, hematocrit 37.5%, and platelets 149,000. Lipid profile is significant for elevated triglycerides of 337. IMPRESSION: Three-vessel flow-limiting coronary artery disease with anginal symptoms, improved after [place] balloon angioplasty today. We talked at length with the patient about possible coronary artery bypass grafting, indications, benefits, and risks which include but are not limited to, things such as bleeding, need for blood or blood product transfusion and their attendant risks, damage to the kidneys including kidney failure and dialysis, damage to the liver or the lungs, heart attack, stroke, abnormal heart rhythm, mediastinitis, infection, pain, and even . The patient indicates his understanding and is considering these things. Using Society of Thoracic Surgeons database, risks of mortality as well as morbidity and mortality were calculated and predicted at 0.510% mortality, any morbidity or mortality of 7.522%. I believe that his risks are under represented in this. I did share this data with the patient and his . At this point, the patient is leaning towards eventual coronary artery bypass grafting, probably on an elective basis. He will be seen by Dr. Nuñez in the early a.m. and further disposition made at that time. We appreciate the opportunity to participate in his care. Consultation Report [address] [place]. [address] NAME: MAGDA JUÁREZ : 57 STATUS : REG REF PAT#: [id number] AGE: 61 ADM/REG DATE : 03/06/17 MR#: [id number] REPORT SERV DATE: 03/07/17 DICTATED BY: JENNIFER NUÑEZ DATE: 03/06/17 REPORT STATUS : Draft TRANSCRIBED BY: MODL DATE: 03/06/17 DICTATED BY: Bony Arias N.P. MSL/AURAL Jennifer Nuñez M.D. / [id number] CC: [facility]
[~2017-03-06 06:13] MED LIST changes: +MELATONIN10 M2 PO; +NORV5 PO; +T PO
[2017-03-06 07:23] LABS: BASOPHILS 0.5 %; BASOPHILS ABSOLUTE 0.04 10/3/uL (0.0-0.16); EOSINOPHILS 7.3 %; EOSINOPHILS ABSOLUTE 0.59 10/3/uL (0.0-0.53); HEMOGLOBIN 13.5 g/dL (13.6-17.8); IMMATURE GRANULOCYTES 0.4 %; IMMATURE GRANULOCYTES ABSOLUTE 0.03 10/3/uL (0.0-0.11); LYMPHOCYTES 34.7 %; LYMPHOCYTES ABSOLUTE 2.79 10/3/uL (0.67-4.30); MEAN CORPUSCULAR HEMOGLOB 30.2 pg (26.0-34.0); MEAN CORPUSCULAR VOLUME 83.9 fL (80-100); MEAN PLATELET VOLUME 9.4 fL (9.2-13.0); MONOCYTES 8.6 %; MONOCYTES ABSOLUTE 0.69 10/3/uL (0.21-1.20); NEUTROPHILS 48.5 %; NEUTROPHILS ABSOLUTE 3.91 10/3/uL (2.02-8.40); PLATELET COUNT 149 10/3/uL (150-400); RBC DISTRIBUTION WIDTH 13.9 % (12.0-16.0); RED CELL COUNT 4.47 10/6/uL (4.7-6.1); WHITE BLOOD CELLS 8.1 10/3/uL (4.5-10.5)
[2017-03-06 07:24] LABS: HEMATOCRIT 37.5 % (40.0-51.0); MANUAL DIFF NO %
[2017-03-06 07:30] LABS: BUN (BLOOD UREA NITROGEN) 15 MG/DL (6-23); CALCIUM, SERUM 8.8 MG/DL (8.5-10.4); CHLORIDE, SERUM 105 MMOL/L (96-112); CHOL/HDL RATIO(NOT ORDER) 3.6 (0-5); CHOLESTEROL 152 MG/DL (< 200); CO2 (CARBON DIOXIDE) 25 MMOL/L (24-34); CREATININE 0.95 MG/DL (0.70-1.30); GFR AFRICAN AMERICAN 100 ML/MIN (>=60); GFR NON AFRICAN AMERICAN 87 ML/MIN (>=60); GLUCOSE, SERUM 222 MG/DL (60-99); HDL CHOLESTEROL 42 MG/DL (> 39); LDL CHOLESTEROL 43 MG/DL (< 130); NON-HDL CHOLESTEROL 110 MG/DL (< 160); POTASSIUM, SERUM 3.6 MMOL/L (3.5-5.3); SODIUM, SERUM 139 MMOL/L (135-148); TRIGLYCERIDE 337 MG/DL (< 150)
[2017-03-14] MEDS ORDERED: JANUMET1 TA1 PO (17:22)
[2017-03-14] MEDS ORDERED: NITROSTAT0.4 MG SL (17:23)
[2017-03-14] MEDS ORDERED: LINZESS 290 M290 MCG PO (17:23)
[2017-03-14] MEDS ORDERED: ZOL100 PO (17:24)
[2017-03-14] MEDS ORDERED: BUM2 PO (17:24)
[2017-03-14] MEDS ORDERED: BELSOMRA20 MG PO (17:24)
[2017-03-14] MEDS ORDERED: REQUIP1 PO (17:24)
[2017-03-14] MEDS ORDERED: MELATONIN10 M2 PO (17:25)
[2017-03-14] MEDS ORDERED: HUMALOG SC (17:25)
[2017-03-14] MEDS ORDERED: ASAB PO (17:25)
[2017-03-14] MEDS ORDERED: TRESIBA FL200 UNIT/1 SC (17:26)
[2017-03-14] MEDS ORDERED: CAT2 PO (17:26)
[2017-03-14] MEDS ORDERED: NORCO1 TAB PO (17:26)
[2017-03-14] MEDS ORDERED: PRIN20 PO (17:26)
[2017-03-14] MEDS ORDERED: ALEVE220 MG PO (17:26)
[2017-03-14] MEDS ORDERED: BRILINTA90 MG PO (17:27)
[2017-03-14] MEDS ORDERED: NORV10 PO (17:27)
[2017-03-14] MEDS ORDERED: IMDUR60 PO (17:27)
[2017-03-14] MEDS ORDERED: VALIUM10 MG PO (17:27)
[2017-03-14] MEDS ORDERED: SEROQUEL300 MG PO (17:27)
[2017-03-14] MEDS ORDERED: LYRICA200 MG PO (17:28)
[2017-03-14] MEDS ORDERED: COREG12 PO (17:29)
[2017-03-14] MEDS ORDERED: CRESTOR40 MG PO (17:29)
[2017-03-14] MEDS ORDERED: LOFIB160 PO (17:32)
[2017-03-15] MEDS ORDERED: IMDUR120 PO (11:30)
[2017-07-27] MEDS ORDERED: CAT2 PO (10:54)
[2017-07-27] MEDS ORDERED: PLAVIX PO (10:55)
[2017-07-27] MEDS ORDERED: COREG25 PO (10:55)
[2017-07-27] MEDS ORDERED: TRULICITY1.5 MG/0.5 SQ (10:56)
[2017-07-27] MEDS ORDERED: IMDUR60 PO (11:08)
[2017-07-30] MEDS ORDERED: LYRICA100 MG PO (08:26)
[2017-07-30] MEDS ORDERED: RANEXA1000 MG PO (15:37)
== END 2017-03-07 11:30 | disposition home or self-care (01) ==
LOC: CORLMH 06:13 → SSU1 06:37
PROVIDERS: Internal Medicine Interventional Cardiology
DX: I25.110 Atherosclerotic heart disease of native coronary artery with unstable angina pectoris (principal); I10 Essential (primary) hypertension; E78.5 Hyperlipidemia, unspecified; F41.9 Anxiety disorder, unspecified; F32.9 Major depressive disorder, single episode, unspecified; E66.01 Morbid (severe) obesity due to excess calories; G25.81 Restless legs syndrome; G47.33 Obstructive sleep apnea (adult) (pediatric); K21.9 Gastro-esophageal reflux disease without esophagitis; M19.90 Unspecified osteoarthritis, unspecified site; E11.40 Type 2 diabetes mellitus with diabetic neuropathy, unspecified; Z88.5 Allergy status to narcotic agent; Z88.0 Allergy status to penicillin; Z91.040 Latex allergy status; Z79.82 Long term (current) use of aspirin; Z79.899 Other long term (current) drug therapy; Z68.41 Body mass index [BMI] 40.0-44.9, adult; Z79.891 Long term (current) use of opiate analgesic; D69.6 Thrombocytopenia, unspecified; Z99.89 Dependence on other enabling machines and devices; Z87.442 Personal history of urinary calculi; Z96.653 Presence of artificial knee joint, bilateral; Z90.49 Acquired absence of other specified parts of digestive tract; Z98.1 Arthrodesis status; Z82.49 Family history of ischemic heart disease and other diseases of the circulatory system; Z83.49 Family history of other endocrine, nutritional and metabolic diseases; Z98.890 Other specified postprocedural states
CPT/HCPCS: 80048; 80061; 82962; 85025; 85730; 92920; 93005; 93458; 96372; 96374; 99152; 99153; A9270-GY; C1713; C1725; C1760; C1769; C1887; G0378; J0583; J2250; J3010; Q9967

== ENCOUNTER 2017-04-03 12:39 | Inpatient (IN) | payer OTHER ==
--- NOTE | ~2017-04-03 | DS ---
Discharge Summary [place] [id number] [place]. [address] NAME: MAGDA JUÁREZ : 57 STATUS : DIS IN PAT#: [id number] AGE: 61 ADM/REG DATE : 04/03/17 MR#: [id number] REPORT SERV DATE: 04/12/17 DICTATED BY: NOLAN MONACO JR. DATE: 04/11/17 REPORT STATUS : Draft TRANSCRIBED BY: CHELY DATE: 04/11/17 Data Collection from hospitalization DISCHARGE DIAGNOSES: 1. Chest pain. 2. Coronary artery disease. 3. Diabetes mellitus. 4. Hypertension. 5. Hyperlipidemia. CONSULTATIONS: 1. Selina Dobson M.D. 2. Bony Arias N.Amaury. PROCEDURES PERFORMED: None. MEDICATIONS: 1. Norvasc 5 mg daily. 2. Aspirin 81 mg daily. 3. Aleve 440 mg daily as needed. 4. Coreg 6.25 mg twice daily. 5. Valium 10 mg at bedtime. 6. Fenofibrate 160 mg daily. 7. Bolivar 10/325, two tablets at bedtime. 8. Tresiba FlexTouch 60 units at bedtime. 9. Linzess 580 mcg at bedtime. 10.Melatonin 40 mg at bedtime. 11.Lyrica 200 mg at bedtime. 12.Seroquel 600 mg at bedtime. 13.Ranexa 500 mg twice daily. 14.Requip 1 mg daily. 15.Zoloft 100 mg at bedtime. 16.Belsomra 20 mg at bedtime. 17.Janumet one tablet daily. 18.Nitrostat 0.4 mg sublingually as needed for chest pain. 19.Bumex one-half tablet beginning 04/07/2017, as directed. 20.Zestril 20 mg at bedtime. Restart on 04/07/2017. 21.Brilinta 90 mg twice daily. 22.Crestor 40 mg at bedtime. 23.Humalog sliding scale insulin as directed. 24.Nitro-Dur 0.6 mg/hour as directed. CONDITION AT DISCHARGE: Upon discharge, he did appear to be doing well and had no complaints. DISPOSITION: He had been discharged home to continue a 2 g sodium, low cholesterol, 1800- calorie ADA diet with activity as discussed. He was to follow up with Dr. Miguel Nuñez on 04/24/2017. Follow up with Dr. Cathy Galo on 05/07/2017. Discharge Summary [place] [address] [place]. [address] NAME: MAGDA JUÁERZ : 57 STATUS : DIS IN PAT#: [id number] AGE: 61 ADM/REG DATE : 04/03/17 MR#: [id number] REPORT SERV DATE: 04/12/17 DICTATED BY: NOLAN MONACO JR. DATE: 04/11/17 REPORT STATUS : Draft TRANSCRIBED BY: CHELY DATE: 04/11/17 HOSPITAL COURSE: This 61-year-old male is a patient who had been seen quite frequently by Dr. Cathy Galo in the clinic and the hospital. His last clinic visit had been on 03/20/2017. He continued to have severe chest pain. He stated that approximately 3 days after he had been seen in the clinic with adjustment of his antihypertensive, he had felt better and then [place] and was gasping for air. He had chest pain and felt like a pressure in his chest, it was 7/10 in intensity and radiated down both arms. He stated that every time he exerts himself, he had chest discomfort and could barely walk 15 feet without having chest pain and gasping for air. He had been using nitroglycerin 3 tablets which did help his symptoms but within 15 minutes, he gets chest pain and shortness of breath again. He stated that even getting up from his [employer]-Boy recliner, he was having chest discomfort. He was admitted for further evaluation and treatment. Upon admission to the hospital, he had been placed on an 1800-calorie ADA, 2 g sodium, 2 L per day fluid restriction diet. He was begun on level 3 sliding scale insulin. Brilinta was discontinued, and he had been placed on heparin via Cardiology protocol. He had also been placed on Ranexa 500 mg twice daily. He was seen following admission by Dr. Dobson for medical management, and it was recommended his Janumet and Tresiba be placed on hold, and he was begun on Levemir 40 units subcutaneously twice daily along with sliding scale insulin at level 3. He was to have Accu-Cheks before meals and at bedtime and was to continue with the 1800-calorie ADA diet that he had been started on. A hemoglobin A1c was also to be checked. Following the day of admission, he had been seen by Bony Arias of Cardiothoracic Surgery and lisinopril was discontinued as there was a question of acute kidney injury. He did still note chest, arm, and neck heaviness when ambulating to the restroom. He was afebrile and his vital signs were stable. He was in sinus rhythm on telemetry. He was encouraged to seek a second opinion and was in agreement with this, and the patient was therefore seen by Dr. Orlando Saez for his second opinion. Dr. Orlando Saez believed that the ischemia producing vessel was the third diagonal branch with 70% to 90% ostial stenosis based on the recent PET scan. He felt that the vessel was too small for a stent or SVG and that the restenoses rate for POBA was high even if successful, and he had recommended continued medical therapy for the patient's angina. His hemoglobin A1c returned at 8.0, and he was continued on his current diabetic medication. On 04/05/2017, he had no new complaints and did continue to do well. He did report no chest pain after receiving Ranexa and did state that he wanted to hold off on surgery for the time being. His Norvasc was decreased and clonidine was discontinued. On 04/06/2017, he had no new complaints and had remained in stable condition. He had no complaints of chest pain or shortness of breath overnight. He did continue to do well and was then discharged on 04/06/2017 with the above instructions. Information collected by: Shun RojoI.T. I submit the above information as my discharge summary. RW/MODL Nolan Monaco Jr., M.D. / [id number] Discharge Summary [address] [address] NAME: MAGDA JUÁREZ : 57 STATUS : DIS IN [facility]#: [id number] AGE: 61 ADM/REG DATE : 04/03/17 MR#: [id number] REPORT SERV DATE: 04/12/17 DICTATED BY: NOLAN MONACO JR. DATE: 04/11/17 REPORT STATUS : Draft TRANSCRIBED BY: CHELY DATE: 04/11/17 CC: Cathy Galo M.D. AKIRA BOND M.D. Orlando Saez III, M.D., [facility], [facility]
--- NOTE | ~2017-04-03 | CN ---
Consultation Report [facility] [address] [place]. [address] NAME: KALYN QURESHI : 57 STATUS : ADM IN [facility]#: [id number] AGE: 61 ADM/REG DATE : 04/03/17 MR#: [id number] REPORT SERV DATE: 04/03/17 DICTATED BY: NAVEED AYERS DATE: 04/03/17 REPORT STATUS : Draft TRANSCRIBED BY: MODL DATE: 04/03/17 CONSULTATION DATE OF CONSULTATION: 04/03/2017 REASON FOR CONSULT: Management of diabetes mellitus while hospitalized. REASON FOR HOSPITALIZATION: Unstable angina/coronary artery disease. HISTORY OF PRESENTING COMPLAINTS: Mr. Kalyn Qureshi is a very pleasant, 61-year-old, male patient with a history of hypertension, diabetes mellitus which is insulin requiring, dyslipidemia, known coronary artery disease, status post stenting, who is presenting to the hospital with chest pain and shortness of breath. As the patient's chest pain and shortness of breath became almost every day thing and the patient was barely able to walk a few feet before getting short of breath and getting chest discomfort, he decided to come into the hospital. Dr. Galo is his regular mason liner. We are being asked to manage his diabetes mellitus. Upon questioning the patient right now at the bedside, he is on IV heparin drip. The patient denies any chest pain now. He denies any shortness of breath while at rest. He is pretty much asymptomatic now. He states that he has had diabetes for several years and it has not been under the best control, but in the last four to six months or so since he has changed his insulin to Tresiba which he takes every day, his A1c is better. His last A1c was drawn on 03/14/2017 and it is 7.5. The patient states that he takes Tresiba 100 units every day along with Janumet and Humalog sliding scale. The patient also states that he has been eating better in the last six months or so and trying to lose weight and this has helped control his blood sugar levels also. PAST MEDICAL HISTORY: Significant for hypertension, diabetes mellitus, dyslipidemia, obesity, and coronary artery disease. The patient has had several angioplasties and stenting procedures done in the past, and this time around, the patient may be a candidate for CABG. FAMILY HISTORY: Noted. ALLERGIES: THE PATIENT IS ALLERGIC TO OXYCODONE, PENICILLINS, AND LATEX. THE PATIENT IS ALSO ALLERGIC TO ELASTIC BANDS AND STERI-STRIPS. HOME MEDICATIONS: Include amlodipine 10 mg once a day, aspirin 81 mg once a day, Bumex 2 mg once a day, Coreg 12.5 mg once a day, clonidine 0.2 mg p.o. q.h.s., Valium 10 mg once at bedtime, fenofibrate 160 mg once a day, Success 10/325 two tablets p.o. at bedtime. The patient also takes isosorbide mononitrate or Imdur 120 mg once a day, Linzess 580 mcg p.o. at bedtime, lisinopril 20 mg p.o. at bedtime, melatonin 10 mg p.o. at bedtime, naproxen 440 mg p.o. daily p.r.n., nitroglycerin 0.4 mg sublingually p.r.n., Lyrica 200 mg p.o. at bedtime, Seroquel 600 mg p.o. at bedtime, Requip 1 mg p.o. at bedtime, Crestor 40 mg p.o. at bedtime, Zoloft 100 mg p.o. at bedtime, Janumet one p.o. daily, Belsomra 20 mg once Consultation Report [address] [place]. [address] NAME: KALYN UQRESHI : 57 STATUS : ADM IN [facility]#: [id number] AGE: 61 ADM/REG DATE : 04/03/17 MR#: [id number] REPORT SERV DATE: 04/03/17 DICTATED BY: NAVEED AYERS DATE: 04/03/17 REPORT STATUS : Draft TRANSCRIBED BY: CHELY DATE: 04/03/17 a day, Brilinta 90 mg tablet p.o. twice a day along with lispro insulin or Humalog per sliding scale and Tresiba which is long-acting insulin which he takes 60 units at bedtime. Upon questioning, the patient states that he has even taken it up to 100 units at bedtime. PHYSICAL EXAMINATION: GENERAL: The patient is alert, oriented. The patient is an obese gentleman and appears to be comfortable at rest. VITAL SIGNS: Stable at this time. NECK: The patient has a thick and stocky neck, but there is no JVD. CARDIOVASCULAR SYSTEM: S1, S2 appreciated. Sinus rhythm. No murmurs, rubs, or gallops noted. RESPIRATORY SYSTEM: Thick chest wall noted. Poor lung expansion noted because of central obesity, but there are no rales or rhonchi noted. ABDOMEN: Central obesity noted. Abdomen itself is soft, nontender, and nondistended. Bowel sounds are appreciated. No organomegaly noted. EXTREMITIES: There is no pedal edema. Pedal pulses are well felt. NEUROLOGIC: No deficits. MUSCULOSKELETAL: No significant joint swelling, redness, warmth, or pain. PSYCHIATRIC: Normal at this time, but the patient is on multiple psychiatric medications including somnolent medications and medications for insomnia and depression. The patient is on at least five to six medications that can cause somnolence and these include melatonin, Valium, Lyrica, Success, Seroquel, etc. LABORATORY DATA: Labs that I have on this patient that are most recent include the following. His CBC shows a WBC count of 8.9, hemoglobin 12.5, and hematocrit 33.5. His electrolyte profile shows sodium 141, potassium 3.7, BUN 17, creatinine 1.1. Blood glucose level is 218. Lipid profile shows total cholesterol of 112, HDL 34, LDL 13, and triglycerides 328. ASSESSMENT: 1. My assessment on this gentleman is unstable angina in a patient with known coronary artery disease, primary mason liner, Dr. Cathy Galo, is handling this. 2. Diabetes mellitus-insulin requiring. The patient is on Tresiba, Humalog, and Janumet for this. At this time, we will hold Janumet during hospitalization and hold the Tresiba too. Instead, we will start the patient on Levemir 40 units subcutaneously twice a day along with sliding scale insulin level 3. 3. We will also do an Accu-Chek a.c. and h.s. and keep the patient on 1800 kilocalorie ADA diet. 4. We will check an W4c-vlye has already been done and it is pending at this time. 5. This patient is a classic example of metabolic syndrome with hypertension, diabetes, dyslipidemia, obesity, and heart disease. However, his most recent hemoglobin A1c was 7.5, which shows that the patient is definitely on the way to controlling his own diabetes and is motivated to do so. During the course of this hospitalization, we will handle his blood glucose levels and also get dietary advice for diabetes and follow. Consultation Report [place] [id number] [address] NAME: KALYN QURESHI : 57 STATUS : ADM IN PAT#: [id number] AGE: 61 ADM/REG DATE : 04/03/17 MR#: [id number] REPORT SERV DATE: 04/03/17 DICTATED BY: NAVEED AYERS DATE: 04/03/17 REPORT STATUS : Draft TRANSCRIBED BY: CHELY DATE: 04/03/17 Thank you for the consult. YAIR/CHELY Naveed Ayers M.D. / [id number] CC: [facility] SUSAN R.
--- NOTE | ~2017-04-03 | HP ---
History And Physical [address] [place]. [address] NAME: KALYN QURESHI : 57 STATUS : ADM IN [facility]#: [id number] AGE: 61 ADM/REG DATE : 04/03/17 MR#: [id number] REPORT SERV DATE: 04/03/17 DICTATED BY: DATE: REPORT STATUS : Draft TRANSCRIBED BY: MODL DATE: 04/03/17 DATE OF ADMISSION: 04/03/2017 CHIEF COMPLAINT/REASON FOR ADMISSION: Chest pain. PRIMARY RECEIVING WEIGHER: Cathy Galo MD. PRIMARY CARE PROVIDER: Dr. Melva Taylor. HISTORY OF PRESENT ILLNESS: Mr. Kalyn Qureshi is a 61-year-old gentleman who I have seen quite frequently in clinic and in the hospital. His last clinic visit was on 03/20/2017. He continues to have severe chest pain. He stated that approximately three days after I saw him with adjustment of his antihypertensives, he felt better and then [place], he was gasping for air. He had chest pain that felt like a pressure in his chest. It was 7/10 in intensity and it radiated down both arms. He states that every time he exerts himself, he has chest discomfort and he can barely walk 15 feet without having chest pain and gasping for air. He has been using nitroglycerin three tablets, which does help his symptoms, but within 15 minutes, he gets chest pain and shortness of breath again. He states that even getting up from his [employer] recliner. He is having chest discomfort at this time. PAST MEDICAL HISTORY: 1. Coronary artery disease, status post PCI to the RCA, which is remote; PCI to the LAD, 01/2017, with plain old balloon angioplasty to D2 and D3; and PCI to the RCA 12/2016; and PCTA of ostial diagonal and ostial ramus branch on 03/06/2017. 2. Diabetes. 3. Hypertension. 4. Hyperlipidemia. 5. Anxiety. 6. Morbid obesity. SOCIAL HISTORY: The patient is . He does not smoke, drink, or use extracurricular drugs. FAMILY HISTORY: Noncontributory. ALLERGIES: 1. CODEINE. 2. LATEX. 3. OXYCODONE. 4. PENICILLIN. CURRENT MEDICATIONS: 1. Nitroglycerin 0.4 mg p.r.n. 2. Isosorbide mononitrate 60 mg p.o. daily. 3. Fenofibric acid 135 mg p.o. daily. History And Physical [address] [address] NAME: KALYN QURESHI : 57 STATUS : ADM IN [facility]#: [id number] AGE: 61 ADM/REG DATE : 04/03/17 MR#: [id number] REPORT SERV DATE: 04/03/17 DICTATED BY: DATE: REPORT STATUS : Draft TRANSCRIBED BY: MODL DATE: 04/03/17 4. Crestor 40 mg p.o. daily. 5. Coreg 12.5 mg p.o. b.i.d. 6. Clonidine 0.2 mg p.o. daily. 7. Bumex 2 mg p.o. daily. 8. Brilinta 90 mg p.o. b.i.d. 9. Amlodipine 5 mg p.o. daily. 10.Tresiba FlexTouch 100 units. 11.Sertraline 100 mg p.o. daily. 12.Quetiapine 300 mg p.o. b.i.d. 13.Melatonin 10 mg p.o. 4 times a day. 14.Lyrica 200 mg p.o. daily. 15.Linzess 290 mg p.o. daily. 16.Janumet 50/100 mg p.o. b.i.d. 17.Oxycodone and acetaminophen. 18.Humalog per sliding scale. 19.Diazepam 10 mg p.o. daily. 20.Belsomra 20 mg p.o. q.p.m. 21.Aspirin 81 mg p.o. daily. REVIEW OF SYSTEMS: All systems were reviewed and were negative except for dictated in HPI. PHYSICAL EXAMINATION: VITAL SIGNS: Blood pressure on arrival to clinic was 122/64, standing, pulse is 68; lying down 130/82, pulse is 84; sitting 118/76. GENERAL: Mr. Qureshi is an anxious 61-year-old gentleman. NECK: I could not appreciate jugular venous distention or carotid bruits. HEART: Regular rate and rhythm. Normal S1, S2. I could not appreciate murmurs, rubs, or gallops. LUNGS: Clear to auscultation in all wise. ABDOMEN: Obese and nontender. I could not appreciate abdominal wall edema. EXTREMITIES: Warm and well perfused. There is no pitting edema. MUSCULOSKELETAL: No clubbing or cyanosis of the digits. NEUROLOGIC: I could not appreciate focal neurologic deficits. DATA: An EKG performed in clinic demonstrated normal sinus rhythm at 78 beats per minute. There were nonspecific changes in the lateral leads. No ischemic ST-T segment changes. There was no significant change from a previous EKG performed on 03/20/2017. IMPRESSION REPORT AND PLAN: 1. Chest pain consistent with unstable angina. 2. Hypertension. 3. Hyperlipidemia. 4. Diabetes mellitus. 5. Morbid obesity. 6. Anxiety disorder. History And Physical [address] [address] NAME: KALYN QURESHI : 57 STATUS : ADM IN [facility]#: [id number] AGE: 61 ADM/REG DATE : 04/03/17 MR#: [id number] REPORT SERV DATE: 04/03/17 DICTATED BY: DATE: REPORT STATUS : Draft TRANSCRIBED BY: MODL DATE: 04/03/17 RECOMMENDATIONS: 1. I have discussed this briefly with Dr. Nuñez's nurse practitioner, Gonsalo Arias, who has discussed this with Dr. Nuñez and will admit to hospital for coronary artery bypass grafting based on previous cardiac catheterization results. 2. We will start heparin drip via the cardiology protocol. 3. Hold Brilinta prior to surgery. 4. We will continue the remainder of his medications. 5. I will ask for the assistance of my [facility] colleagues in controlling Mr. Qureshi's diabetes mellitus. 6. Additional recommendations pending clinical course. LGC/MODL Cathy Galo M.D. / [id number] CC: [place] NP James Zellner, M.D.
[~2017-04-03 12:39] MED LIST changes: +ALEVE220 MG PO; +IMDUR120 PO; +IMDUR60 PO; +LOFIB160 PO; +LYRICA200 MG PO; +TRESIBA FL200 UNIT/1 SC
[2017-04-03 14:18] LABS: BASOPHILS 0.2 %; BASOPHILS ABSOLUTE 0.02 10/3/uL (0.0-0.16); EOSINOPHILS 4.4 %; EOSINOPHILS ABSOLUTE 0.39 10/3/uL (0.0-0.53); HEMATOCRIT 33.5 % (40.0-51.0); HEMOGLOBIN 12.5 g/dL (13.6-17.8); IMMATURE GRANULOCYTES 0.3 %; IMMATURE GRANULOCYTES ABSOLUTE 0.03 10/3/uL (0.0-0.11); LYMPHOCYTES 24.6 %; LYMPHOCYTES ABSOLUTE 2.19 10/3/uL (0.67-4.30); MEAN CORPUS HGB CONC 37.3 g/dL (32.0-36.0); MEAN CORPUSCULAR HEMOGLOB 30.3 pg (26.0-34.0); MEAN CORPUSCULAR VOLUME 81.1 fL (80-100); MEAN PLATELET VOLUME 9.5 fL (9.2-13.0); MONOCYTES 7.1 %; MONOCYTES ABSOLUTE 0.63 10/3/uL (0.21-1.20); NEUTROPHILS 63.4 %; NEUTROPHILS ABSOLUTE 5.63 10/3/uL (2.02-8.40); PLATELET COUNT 132 10/3/uL (150-400); RBC DISTRIBUTION WIDTH 13.7 % (12.0-16.0); RED CELL COUNT 4.13 10/6/uL (4.7-6.1); WHITE BLOOD CELLS 8.9 10/3/uL (4.5-10.5)
[2017-04-03 14:21] LABS: MANUAL DIFF NO %
[2017-04-03 14:26] LABS: INTERNATIONAL NORMAL RATI 1.2 UNITS (-); PARTIAL THROMBO TIME 32.5 SEC (22.5-37.2); PROTIME (NOT ORD) 14.7 SEC (12.0-14.5)
[2017-04-03 14:31] LABS: BUN (BLOOD UREA NITROGEN) 17 MG/DL (6-23); CALCIUM, SERUM 8.4 MG/DL (8.5-10.4); CHLORIDE, SERUM 108 MMOL/L (96-112); CHOL/HDL RATIO(NOT ORDER) 3.3 (0-5); CHOLESTEROL 112 MG/DL (< 200); CO2 (CARBON DIOXIDE) 27 MMOL/L (24-34); CREATININE 1.11 MG/DL (0.70-1.30); GFR AFRICAN AMERICAN 83 ML/MIN (>=60); GFR NON AFRICAN AMERICAN 72 ML/MIN (>=60); GLUCOSE, SERUM 218 MG/DL (60-99); HDL CHOLESTEROL 34 MG/DL (> 39); LDL CHOLESTEROL 13 MG/DL (< 130); NON-HDL CHOLESTEROL 78 MG/DL (< 160); POTASSIUM, SERUM 3.7 MMOL/L (3.5-5.3); SODIUM, SERUM 141 MMOL/L (135-148); TRIGLYCERIDE 328 MG/DL (< 150)
[2017-04-04 06:41] LABS: BASOPHILS 0.4 %; BASOPHILS ABSOLUTE 0.04 10/3/uL (0.0-0.16); EOSINOPHILS 5.2 %; EOSINOPHILS ABSOLUTE 0.47 10/3/uL (0.0-0.53); HEMOGLOBIN 13.4 g/dL (13.6-17.8); IMMATURE GRANULOCYTES 0.3 %; IMMATURE GRANULOCYTES ABSOLUTE 0.03 10/3/uL (0.0-0.11); LYMPHOCYTES 33.2 %; LYMPHOCYTES ABSOLUTE 2.98 10/3/uL (0.67-4.30); MEAN CORPUS HGB CONC 35.6 g/dL (32.0-36.0); MEAN CORPUSCULAR HEMOGLOB 29.8 pg (26.0-34.0); MEAN PLATELET VOLUME 9.6 fL (9.2-13.0); MONOCYTES 8.8 %; MONOCYTES ABSOLUTE 0.79 10/3/uL (0.21-1.20); NEUTROPHILS 52.1 %; NEUTROPHILS ABSOLUTE 4.67 10/3/uL (2.02-8.40); PLATELET COUNT 144 10/3/uL (150-400)
[2017-04-04 06:42] LABS: HEMATOCRIT 37.6 % (40.0-51.0); MANUAL DIFF NO %; MEAN CORPUSCULAR VOLUME 83.6 fL (80-100)
[2017-04-04 06:59] LABS: BUN (BLOOD UREA NITROGEN) 23 MG/DL (6-23); CALCIUM, SERUM 9.2 MG/DL (8.5-10.4); CHLORIDE, SERUM 109 MMOL/L (96-112); CO2 (CARBON DIOXIDE) 19 MMOL/L (24-34); CPK 561 U/L (0-200); CREATININE 1.84 MG/DL (0.70-1.30); GFR AFRICAN AMERICAN 45 ML/MIN (>=60); GFR NON AFRICAN AMERICAN 39 ML/MIN (>=60); GLUCOSE, SERUM 161 MG/DL (60-99); POTASSIUM, SERUM 3.7 MMOL/L (3.5-5.3); SODIUM, SERUM 139 MMOL/L (135-148); TROPONIN I <0.02 NG/ML (<0.05)
[2017-04-04] MEDS ORDERED: BELSOMRA20 MG PO (20:44)
[2017-04-04] MEDS ORDERED: LYRICA100 MG PO (20:45)
[2017-04-04] MEDS ORDERED: IMDUR30 PO (20:45)
[2017-04-04] MEDS ORDERED: NORCO1 TAB PO (20:45)
[2017-04-04] MEDS ORDERED: NITROSTAT0.4 MG SL (20:46)
[2017-04-04] MEDS ORDERED: JANUMET1 TA1 PO (20:46)
[2017-04-04] MEDS ORDERED: LINZESS 290 M290 MCG PO (20:47)
[2017-04-04] MEDS ORDERED: BUM2 PO (20:47)
[2017-04-04] MEDS ORDERED: ZOL100 PO (20:47)
[2017-04-04] MEDS ORDERED: ZESTRIL20 MG PO (20:48)
[2017-04-04] MEDS ORDERED: TRESIBA FL200 UNIT/1 SC (20:48)
[2017-04-04] MEDS ORDERED: CAT2 PO (20:48)
[2017-04-04] MEDS ORDERED: REQUIP1 PO (20:48)
[2017-04-04] MEDS ORDERED: BRILINTA90 MG PO (20:49)
[2017-04-04] MEDS ORDERED: NORV5 PO (20:50)
[2017-04-04] MEDS ORDERED: VALIUM10 MG PO (20:51)
[2017-04-04] MEDS ORDERED: SEROQUEL300 MG PO (20:51)
[2017-04-04] MEDS ORDERED: CRESTOR40 MG PO (20:52)
[2017-04-04] MEDS ORDERED: ASAB PO (20:52)
[2017-04-04] MEDS ORDERED: COREG6 PO (20:55)
[2017-04-04] MEDS ORDERED: LOFIB160 PO (20:56)
[2017-04-04] MEDS ORDERED: MELATONIN10 M2 PO (20:57)
[2017-04-04] MEDS ORDERED: HUMALOG SC (20:57)
[2017-04-04] MEDS ORDERED: ALEVE220 MG PO (20:59)
[2017-04-04 22:12] LABS: ASCORBIC ACID (UR NOT ORDER) NEG (NEG); BILIRUBIN, URINE SMALL (NEG); KETONE, URINE NEGATIVE (NEG); LEUKOCYTE ESTERASE(NOT OR NEG (NEG); WBC (NOT ORDERED) (RFLEX) 5 (0-5)
[2017-04-05 10:40] LABS: BASOPHILS 0.3 %; BASOPHILS ABSOLUTE 0.02 10/3/uL (0.0-0.16); EOSINOPHILS 6.3 %; EOSINOPHILS ABSOLUTE 0.38 10/3/uL (0.0-0.53); HEMOGLOBIN 11.6 g/dL (13.6-17.8); IMMATURE GRANULOCYTES 0.3 %; IMMATURE GRANULOCYTES ABSOLUTE 0.02 10/3/uL (0.0-0.11); LYMPHOCYTES 35.7 %; LYMPHOCYTES ABSOLUTE 2.17 10/3/uL (0.67-4.30); MEAN CORPUS HGB CONC 36.1 g/dL (32.0-36.0); MEAN CORPUSCULAR HEMOGLOB 29.7 pg (26.0-34.0); MEAN CORPUSCULAR VOLUME 82.1 fL (80-100); MEAN PLATELET VOLUME 9.6 fL (9.2-13.0); MONOCYTES 7.7 %; MONOCYTES ABSOLUTE 0.47 10/3/uL (0.21-1.20); NEUTROPHILS 49.7 %; NEUTROPHILS ABSOLUTE 3.02 10/3/uL (2.02-8.40); PLATELET COUNT 130 10/3/uL (150-400); RBC DISTRIBUTION WIDTH 13.9 % (12.0-16.0); RED CELL COUNT 3.91 10/6/uL (4.7-6.1); WHITE BLOOD CELLS 6.1 10/3/uL (4.5-10.5)
[2017-04-05 10:42] LABS: HEMATOCRIT 32.1 % (40.0-51.0); MANUAL DIFF NO %
[2017-04-05 10:53] LABS: BUN (BLOOD UREA NITROGEN) 31 MG/DL (6-23); CALCIUM, SERUM 8.1 MG/DL (8.5-10.4); CHLORIDE, SERUM 106 MMOL/L (96-112); CO2 (CARBON DIOXIDE) 25 MMOL/L (24-34); CREATININE 1.77 MG/DL (0.70-1.30); GFR AFRICAN AMERICAN 47 ML/MIN (>=60); GFR NON AFRICAN AMERICAN 41 ML/MIN (>=60); GLUCOSE, SERUM 236 MG/DL (60-99); POTASSIUM, SERUM 3.6 MMOL/L (3.5-5.3); SODIUM, SERUM 137 MMOL/L (135-148)
[2017-04-06 08:43] LABS: BASOPHILS 0.5 %; BASOPHILS ABSOLUTE 0.03 10/3/uL (0.0-0.16); EOSINOPHILS 7.8 %; EOSINOPHILS ABSOLUTE 0.46 10/3/uL (0.0-0.53); HEMATOCRIT 33.1 % (40.0-51.0); IMMATURE GRANULOCYTES 0.5 %; IMMATURE GRANULOCYTES ABSOLUTE 0.03 10/3/uL (0.0-0.11); LYMPHOCYTES 35.9 %; LYMPHOCYTES ABSOLUTE 2.13 10/3/uL (0.67-4.30); MANUAL DIFF NO %; MEAN CORPUS HGB CONC 36.3 g/dL (32.0-36.0); MEAN CORPUSCULAR HEMOGLOB 29.9 pg (26.0-34.0); MEAN CORPUSCULAR VOLUME 82.3 fL (80-100); MEAN PLATELET VOLUME 9.4 fL (9.2-13.0); MONOCYTES 7.4 %; MONOCYTES ABSOLUTE 0.44 10/3/uL (0.21-1.20); NEUTROPHILS 47.9 %; NEUTROPHILS ABSOLUTE 2.84 10/3/uL (2.02-8.40); PLATELET COUNT 118 10/3/uL (150-400); RBC DISTRIBUTION WIDTH 13.6 % (12.0-16.0); RED CELL COUNT 4.02 10/6/uL (4.7-6.1); WHITE BLOOD CELLS 5.9 10/3/uL (4.5-10.5)
[2017-04-06 08:50] LABS: INTERNATIONAL NORMAL RATI 1.2 UNITS (-); PROTIME (NOT ORD) 14.6 SEC (12.0-14.5)
[2017-04-06 08:51] LABS: PARTIAL THROMBO TIME 97.3 SEC (22.5-37.2)
[2017-04-06 08:57] LABS: CHLORIDE, SERUM 108 MMOL/L (96-112); CO2 (CARBON DIOXIDE) 24 MMOL/L (24-34); GFR AFRICAN AMERICAN 92 ML/MIN (>=60); GFR NON AFRICAN AMERICAN 80 ML/MIN (>=60); GLUCOSE, SERUM 194 MG/DL (60-99); POTASSIUM, SERUM 4.2 MMOL/L (3.5-5.3); SODIUM, SERUM 139 MMOL/L (135-148)
[2017-04-06 08:58] LABS: BUN (BLOOD UREA NITROGEN) 19 MG/DL (6-23); CREATININE 1.02 MG/DL (0.70-1.30)
[2017-04-06 10:00] LABS: TEG - ANGLE 61.7 DEG (53-72); TEG - COAGULATION INDEX -2.7 (-3 TO 3); TEG - MAXIMUM AMPLITUDE 57.9 MM (50-70); TEG - RATE 9.1 MIN (5.0-10.0)
[2017-04-06 10:01] LABS: MAX AMP (ADP) 59.9 MM (35-68)
[2017-04-06] MEDS ORDERED: RAN500 PO (11:24)
[2017-04-06] MEDS ORDERED: NITROII30C TOP (11:39)
[2017-07-27] MEDS ORDERED: CAT2 PO (10:54)
[2017-07-27] MEDS ORDERED: PLAVIX PO (10:55)
[2017-07-27] MEDS ORDERED: COREG25 PO (10:55)
[2017-07-27] MEDS ORDERED: TRULICITY1.5 MG/0.5 SQ (10:56)
[2017-07-27] MEDS ORDERED: IMDUR60 PO (11:08)
[2017-07-30] MEDS ORDERED: LYRICA100 MG PO (08:26)
[2017-07-30] MEDS ORDERED: RANEXA1000 MG PO (15:37)
== END 2017-04-06 15:20 | disposition home or self-care (01) | DRG 303 ==
LOC: 7NO 12:39
PROVIDERS: Internal Medicine; Internal Medicine Cardiovascular Disease; Nurse Practitioner Family; Thoracic Surgery (Cardiothoracic Vascular Surgery)
DX: I25.110 Atherosclerotic heart disease of native coronary artery with unstable angina pectoris (principal); N17.9 Acute kidney failure, unspecified; I95.9 Hypotension, unspecified; Z68.42 Body mass index [BMI] 45.0-49.9, adult; E11.65 Type 2 diabetes mellitus with hyperglycemia; E66.01 Morbid (severe) obesity due to excess calories; I10 Essential (primary) hypertension; F41.9 Anxiety disorder, unspecified; E78.5 Hyperlipidemia, unspecified; Z79.4 Long term (current) use of insulin; Z95.5 Presence of coronary angioplasty implant and graft
CPT/HCPCS: 71020; 80048; 80061; 81001; 82550; 82962; 83036; 83735; 84484; 85025; 85347; 85384; 85576; 85576-59; 85610; 85730; 87641; 93005; A9270-GY; J2440; P9045